=== PATIENT | female | born 1965 | race African-American/Black ===

== ENCOUNTER 2017-09-13 12:51 | Day surgery (SDC) | payer BC, OTHER ==
[~2017-09-13] VITALS: Ht 167.6 cm; Wt 66.2 kg
[~2017-09-13 12:51] MED LIST: ALDACTONE25 MG PO; BIDIL1 TABLET PO; COREG25 M1 PO; ENDOCET 10-3251 EACH PO; LIPITOR20 MG PO; MOBIC7.5 MG PO; ZANAFLEX2 MG PO; ZESTRIL40 MG PO
== END 2017-09-13 14:43 | disposition home or self-care (01) ==
LOC: PAIN 12:51 → SDC 13:30 → PAIN 14:43
PROC: 3E0T33Z Introduction of Anti-inflammatory into Peripheral Nerves and Plexi, Percutaneous Approach (ICD-10-PCS; principal; 2017-09-13)
PROC: 3E0T3BZ Introduction of Anesthetic Agent into Peripheral Nerves and Plexi, Percutaneous Approach (ICD-10-PCS; principal; 2017-09-13)
PROC: BR161ZZ Fluoroscopy of Lumbar Facet Joint(s) using Low Osmolar Contrast (ICD-10-PCS; principal; 2017-09-13)
DX: M47.816 Spondylosis without myelopathy or radiculopathy, lumbar region (principal); M54.5 Low back pain; G89.29 Other chronic pain; M51.36 Other intervertebral disc degeneration, lumbar region; I11.0 Hypertensive heart disease with heart failure; I50.9 Heart failure, unspecified; D64.9 Anemia, unspecified; E78.5 Hyperlipidemia, unspecified; Z79.891 Long term (current) use of opiate analgesic; Z87.891 Personal history of nicotine dependence
CPT/HCPCS: J1030; J2250; J3010; S0020

== ENCOUNTER 2017-10-25 12:37 | Day surgery (SDC) | payer OTHER ==
[~2017-10-25] VITALS: Ht 167.6 cm; Wt 65.8 kg
== END 2017-10-25 14:20 | disposition home or self-care (01) ==
LOC: PAIN 12:37
DX: M47.816 Spondylosis without myelopathy or radiculopathy, lumbar region (principal); M54.5 Low back pain; G89.29 Other chronic pain; E78.5 Hyperlipidemia, unspecified; I11.0 Hypertensive heart disease with heart failure; I50.9 Heart failure, unspecified; D64.9 Anemia, unspecified; Z87.891 Personal history of nicotine dependence; Z79.891 Long term (current) use of opiate analgesic
CPT/HCPCS: J1030; J2250; J3010; S0020

== ENCOUNTER 2018-01-17 08:34 | Day surgery (SDC) | payer OTHER ==
[~2018-01-17] VITALS: Ht 167.6 cm; Wt 69.4 kg
[~2018-01-17 08:34] MED LIST changes: +CLINORIL200 MG PO; -ENDOCET 10-3251 EACH PO; +MOBIC15 MG PO; -MOBIC7.5 MG PO; +OXYCODONE HCL10 MG PO; +PERCOCET 7.51 TABLET PO
== END 2018-01-17 10:15 | disposition home or self-care (01) ==
LOC: PAIN 08:34
DX: M47.816 Spondylosis without myelopathy or radiculopathy, lumbar region (principal); M54.5 Low back pain; G89.29 Other chronic pain; D64.9 Anemia, unspecified; I11.0 Hypertensive heart disease with heart failure; I50.9 Heart failure, unspecified; E78.5 Hyperlipidemia, unspecified; Z87.891 Personal history of nicotine dependence; Z79.891 Long term (current) use of opiate analgesic
CPT/HCPCS: J1030; J2250; S0020

== ENCOUNTER 2018-05-02 09:15 | Day surgery (SDC) | payer OTHER ==
[~2018-05-02] VITALS: Ht 167.6 cm; Wt 69.4 kg
[~2018-05-02 09:15] MED LIST changes: +CYMBALTA30 MG PO; +NORVASC10 MG PO; +PERCOCET 5/31 TABLET PO; -PERCOCET 7.51 TABLET PO; +STOOL SOFTENER100 M1 PO; -ZANAFLEX2 MG PO; +ZANAFLEX4 MG PO
== END 2018-05-02 11:00 | disposition home or self-care (01) ==
LOC: PAIN 09:15
DX: M47.816 Spondylosis without myelopathy or radiculopathy, lumbar region (principal); M51.36 Other intervertebral disc degeneration, lumbar region; I11.0 Hypertensive heart disease with heart failure; I50.9 Heart failure, unspecified; M46.1 Sacroiliitis, not elsewhere classified; E78.5 Hyperlipidemia, unspecified; D64.9 Anemia, unspecified; Z79.891 Long term (current) use of opiate analgesic; Z87.891 Personal history of nicotine dependence
CPT/HCPCS: J1030; J2250; J3010; S0020